=== PATIENT | male | born 1960 | race Two or more races ===

== ENCOUNTER 2017-11-08 18:39 | Emergency (ER) | payer SELFPAY ==
[~2017-11-08] VITALS: Ht 170.2 cm; Wt 86.2 kg
[2017-11-08] MEDS ORDERED: METFORMIN HCL500 M1 ORAL (18:44)
[2017-11-08] MEDS ORDERED: ASPIR 8181 MG ORAL (18:44)
[2017-11-08] MEDS ORDERED: LANTUS SOL100 UNIT/1 SUBQ (18:44)
[2017-11-08 18:50] VITALS: BP 155/80
[2017-11-08] MEDS ORDERED: LORazepam Inj 2mg/ml 1ml IM ONE (19:00)
[2017-11-08 20:02] LABS: BASOPHILS % (AUTO) 1.5 % (0.0-2.0); EOSINOPHILS % (AUTO) 2.8 % (0.0-3.0); HEMATOCRIT 42.3 % (42.0-52.0); HEMOGLOBIN 13.4 G/DL (14.2-18.0); MEAN CORPUSCULAR VOLUME 89 FL (80-99); MONOCYTES % (AUTO) 10.4 % (1.0-10.0); NEUTROPHILS % (AUTO) 54.3 % (45.0-75.0); PLATELET COUNT 177 K/UL (150-450); RED BLOOD COUNT 4.74 M/UL (4.70-6.10); RED CELL DISTRIBUTION WIDTH 13.1 % (11.6-14.8); WHITE BLOOD COUNT 6.7 K/UL (4.8-10.8)
[2017-11-08 20:21] LABS: ANION GAP 12 mmol/L (5-15); BLOOD UREA NITROGEN 18 mg/dL (7-18); CARBON DIOXIDE 21 MMOL/L (21-32); CHLORIDE 107 MMOL/L (98-107); CREATININE 1.5 MG/DL (0.55-1.30); POTASSIUM 3.6 MMOL/L (3.5-5.1); SODIUM 140 MMOL/L (136-145)
[2017-11-08 20:35] VITALS: BP 146/95
[2017-11-08 20:38] LABS: CREATINE KINASE 1092 U/L (26-308)
--- NOTE | 2017-11-08 22:53 | Emergency Room Report ---
History of Present Illness General Chief Complaint: General Complaint Source: Patient Present Illness HPI Mr. Porter is 56 yo male who was brought to ED for erratic abnormal behavior from [employer] parking lot. Girlfriend was on the scene per EMS. Patient complains of bilateral leg pain. 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 He also stated that he took ativan earlier today. He was able to give an extensive medical hx including DM, CKD, DVT. 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 Hx is limited due to altered mental status with apparent intoxication. Allergies: Coded Allergies: MORPHINE (Verified Allergy, Unknown, 11/08/17) TETRACYCLINES (Verified Allergy, Unknown, 11/08/17) Patient History Past Medical History: other - CKD? limited due to altered mental status Past Surgical History: unable to obtain Pertinent Family History: unable to obtain Social History: Denies: smoking, alcohol use, drug use Nursing Documentation-[facility] Past Medical History: No History, Except For Hx Cardiac Problems: Yes Hx Diabetes: Yes Review of Systems All Other Systems: limited - altered mental status Physical Exam Vital Signs Date Time Temp Pulse Resp B/P (MAP) Pulse Ox O2 Delivery O2 Flow Rate FiO2 11/08/17 18:39 98.3 100 18 156/84 98 Room Air 98.2 General Appearance: other - hypeactive restless jerky motions does attempt to give a full hx Eyes: bilateral eye normal inspection, bilateral eye PERRL ENT: no angioedema, dry mucus membranes, other - foam at corners of mouth Neck: normal inspection, full range of motion Respiratory: lungs clear, normal breath sounds, no rhonchi, no respiratory distress Cardiovascular #1: regular rate, rhythm, no murmur Gastrointestinal: normal inspection, normal bowel sounds, non tender, soft Neurologic: alert, responsive Psychiatric: other - pressured circular speech perseverates Skin: warm/dry Medical Decision Making Diagnostic Impression: Primary Impression: Acute drug intoxication with delirium Additional Impression: Methamphetamine intoxication ER Course Mr. Porter presents with altered mental status, I initially suspected intoxication with sympathomimetic such as cocaine. UDS + for amphetamine. He required chemical sedation with IM lorazepam. On reexamination, protecting airway with normal oxygen saturation 99% on RA. Awaiting sobriety and for patient to awaken from sedation. NO evidence of trauma. intact pedal pulses. My colleague will perform final appropriate disposition. Lab Results Impression Labs Test 11/08/17 19:20 11/08/17 20:06 White Blood Count 6.7 K/UL (4.8-10.8) Red Blood Count 4.74 M/UL (4.70-6.10) Hemoglobin 13.4 G/DL (14.2-18.0) Hematocrit 42.3 % (42.0-52.0) Mean Corpuscular Volume 89 FL (80-99) Mean Corpuscular Hemoglobin 28.2 PG (27.0-31.0) Mean Corpuscular Hemoglobin Concent 31.6 G/DL (32.0-36.0) Red Cell Distribution Width 13.1 % (11.6-14.8) Platelet Count 177 K/UL (150-450) Mean Platelet Volume 7.9 FL (6.5-10.1) Neutrophils (%) (Auto) 54.3 % (45.0-75.0) Lymphocytes (%) (Auto) 31.0 % (20.0-45.0) Monocytes (%) (Auto) 10.4 % (1.0-10.0) Eosinophils (%) (Auto) 2.8 % (0.0-3.0) Basophils (%) (Auto) 1.5 % (0.0-2.0) Sodium Level 140 MMOL/L (136-145) Potassium Level 3.6 MMOL/L (3.5-5.1) Chloride Level 107 MMOL/L (98-107) Carbon Dioxide Level 21 MMOL/L (21-32) Anion Gap 12 mmol/L (5-15) Blood Urea Nitrogen 18 mg/dL (7-18) Creatinine 1.5 MG/DL (0.55-1.30) Estimat Glomerular Filtration Rate 48.8 mL/min (>60) Glucose Level 151 MG/DL (74-106) Calcium Level 9.0 MG/DL (8.5-10.1) Total Creatine Kinase 1092 U/L (26-308) Serum Alcohol < 3 mg/dL Urine Opiates Screen Negative (NEGATIVE) Urine Barbiturates Screen Negative (NEGATIVE) Phencyclidine (PCP) Screen Negative (NEGATIVE) Urine Amphetamines Screen Positive (NEGATIVE) Urine Benzodiazepines Screen Negative (NEGATIVE) Urine Cocaine Screen Negative (NEGATIVE) Urine Marijuana (THC) Screen Negative (NEGATIVE) Last Vital Signs Date Time Temp Pulse Resp B/P (MAP) Pulse Ox O2 Delivery O2 Flow Rate FiO2 11/08/17 20:35 98.2 102 24 146/95 97 Room Air 98.2 Referrals: NOT CHOSEN IPA/,REFERRING (PCP) OTF MARTIN Nov 08, 2017 22:53
[2017-11-09 00:04] VITALS: BP 150/84
[2017-11-09 01:10] VITALS: BP 0/0
== END 2017-11-09 01:10 | disposition home or self-care (01) ==
LOC: EDBD 18:39 → EMR 19:36
DX: F15.121 Other stimulant abuse with intoxication delirium (principal); E11.22 Type 2 diabetes mellitus with diabetic chronic kidney disease; N18.9 Chronic kidney disease, unspecified; Z86.718 Personal history of other venous thrombosis and embolism
CPT/HCPCS: 36415; 80048; 80307; 82550; 85025; 96360; 96372; 99284; G0480; 80329